=== PATIENT | male | born 1935 | race Caucasian/White ===

== ENCOUNTER → 2016-07-17 | Outpatient (CLI) | payer OTHER | END | disposition home or self-care (01) | LOC: PCVCCLINIC 09:50 | PROVIDERS: ATTEND Internal Medicine | DX: I48.91 Unspecified atrial fibrillation (principal); E11.9 Type 2 diabetes mellitus without complications; I10 Essential (primary) hypertension; E78.5 Hyperlipidemia, unspecified | CPT/HCPCS: 85610 ==

== ENCOUNTER → 2016-07-27 | Outpatient (CLI) | payer OTHER | END | disposition home or self-care (01) | LOC: PCVCCLINIC 14:45 | PROVIDERS: ATTEND Internal Medicine | DX: I48.0 Paroxysmal atrial fibrillation (principal); E78.5 Hyperlipidemia, unspecified; E11.9 Type 2 diabetes mellitus without complications; I10 Essential (primary) hypertension; Z79.01 Long term (current) use of anticoagulants | CPT/HCPCS: 80061; 93005; G0463 ==

== ENCOUNTER → 2016-08-14 | Outpatient (CLI) | payer OTHER | END | disposition home or self-care (01) | LOC: PCVCCLINIC 10:38 | PROVIDERS: ATTEND Internal Medicine | DX: I48.91 Unspecified atrial fibrillation (principal); E11.9 Type 2 diabetes mellitus without complications; I10 Essential (primary) hypertension | CPT/HCPCS: 85610 ==

== ENCOUNTER → 2016-09-11 | Outpatient (CLI) | payer OTHER | END | disposition home or self-care (01) | LOC: PCVCCLINIC 10:25 | PROVIDERS: ATTEND Internal Medicine | DX: I48.91 Unspecified atrial fibrillation (principal) | CPT/HCPCS: 85610; G0463 ==

== ENCOUNTER → 2016-09-26 | Outpatient (CLI) | payer OTHER | END | disposition home or self-care (01) | LOC: PCVCCLINIC 09:35 | PROVIDERS: ATTEND Internal Medicine | DX: I48.91 Unspecified atrial fibrillation (principal); E11.9 Type 2 diabetes mellitus without complications | CPT/HCPCS: 85610; G0463 ==

== ENCOUNTER → 2016-10-24 | Outpatient (CLI) | payer OTHER | END | disposition home or self-care (01) | LOC: PCVCCLINIC 09:28 | PROVIDERS: ATTEND Internal Medicine | DX: I48.0 Paroxysmal atrial fibrillation (principal) | CPT/HCPCS: 85610; G0463 ==

== ENCOUNTER → 2016-11-21 | Outpatient (CLI) | payer OTHER | END | disposition home or self-care (01) | LOC: PCVCCLINIC 09:38 | PROVIDERS: ATTEND Internal Medicine | DX: I48.91 Unspecified atrial fibrillation (principal); Z79.01 Long term (current) use of anticoagulants | CPT/HCPCS: 85610 ==

== ENCOUNTER → 2016-12-19 | Outpatient (CLI) | payer OTHER | END | disposition home or self-care (01) | LOC: PCVCCLINIC 10:47 | PROVIDERS: ATTEND Internal Medicine | DX: I48.91 Unspecified atrial fibrillation (principal); E11.9 Type 2 diabetes mellitus without complications; I10 Essential (primary) hypertension; E78.5 Hyperlipidemia, unspecified; Z79.01 Long term (current) use of anticoagulants | CPT/HCPCS: 85610 ==

== ENCOUNTER → 2016-12-24 | Outpatient (CLI) | payer OTHER | END | disposition home or self-care (01) | LOC: PCVCCLINIC 10:43 | PROVIDERS: ATTEND Internal Medicine | DX: I48.91 Unspecified atrial fibrillation (principal); Z79.01 Long term (current) use of anticoagulants | CPT/HCPCS: 85610 ==

== ENCOUNTER → 2017-01-07 | Outpatient (CLI) | payer OTHER | END | disposition home or self-care (01) | LOC: PCVCCLINIC 15:24 | PROVIDERS: ATTEND Internal Medicine | DX: I48.0 Paroxysmal atrial fibrillation (principal); E11.9 Type 2 diabetes mellitus without complications; E78.5 Hyperlipidemia, unspecified; I10 Essential (primary) hypertension; Z79.01 Long term (current) use of anticoagulants | CPT/HCPCS: 85610 ==

== ENCOUNTER → 2017-01-15 | Outpatient (CLI) | payer OTHER | END | disposition home or self-care (01) | LOC: PCVCCLINIC 11:20 | PROVIDERS: ATTEND Internal Medicine | DX: I48.0 Paroxysmal atrial fibrillation (principal); I10 Essential (primary) hypertension; E78.5 Hyperlipidemia, unspecified; E11.9 Type 2 diabetes mellitus without complications; Z79.01 Long term (current) use of anticoagulants; Z96.652 Presence of left artificial knee joint; Z79.84 Long term (current) use of oral hypoglycemic drugs; Z91.048 Other nonmedicinal substance allergy status | CPT/HCPCS: 80061; 93005; G0463 ==

== ENCOUNTER → 2017-02-07 | Outpatient (CLI) | payer OTHER | END | disposition home or self-care (01) | LOC: PCVCCLINIC 15:14 | PROVIDERS: ATTEND Internal Medicine | DX: Z51.81 Encounter for therapeutic drug level monitoring (principal); I48.0 Paroxysmal atrial fibrillation; E11.9 Type 2 diabetes mellitus without complications; E78.5 Hyperlipidemia, unspecified; I10 Essential (primary) hypertension; M48.06 Spinal stenosis, lumbar region; Z79.01 Long term (current) use of anticoagulants | CPT/HCPCS: 85610 ==

== ENCOUNTER → 2017-03-07 | Outpatient (CLI) | payer OTHER | END | disposition home or self-care (01) | LOC: PCVCCLINIC 10:07 | PROVIDERS: ATTEND Internal Medicine | DX: Z51.81 Encounter for therapeutic drug level monitoring (principal); I48.91 Unspecified atrial fibrillation; Z79.01 Long term (current) use of anticoagulants | CPT/HCPCS: 85610 ==

== ENCOUNTER → 2017-04-04 | Outpatient (CLI) | payer OTHER | END | disposition home or self-care (01) | LOC: PCVCCLINIC 10:07 | PROVIDERS: ATTEND Internal Medicine | DX: Z51.81 Encounter for therapeutic drug level monitoring (principal); I48.0 Paroxysmal atrial fibrillation; E11.9 Type 2 diabetes mellitus without complications; E78.5 Hyperlipidemia, unspecified; I10 Essential (primary) hypertension; Z79.01 Long term (current) use of anticoagulants | CPT/HCPCS: 85610 ==

== ENCOUNTER → 2017-04-11 | Outpatient (CLI) | payer OTHER | END | disposition home or self-care (01) | LOC: PCVCCLINIC 10:27 | PROVIDERS: ATTEND Internal Medicine | DX: Z51.81 Encounter for therapeutic drug level monitoring (principal); Z79.01 Long term (current) use of anticoagulants; E11.9 Type 2 diabetes mellitus without complications; E78.5 Hyperlipidemia, unspecified; I10 Essential (primary) hypertension; I48.0 Paroxysmal atrial fibrillation | CPT/HCPCS: 85610 ==

== ENCOUNTER → 2017-04-25 | Outpatient (CLI) | payer OTHER | END | disposition home or self-care (01) | LOC: PCVCCLINIC 11:16 | PROVIDERS: ATTEND Internal Medicine | DX: Z51.81 Encounter for therapeutic drug level monitoring (principal); I48.91 Unspecified atrial fibrillation; E11.9 Type 2 diabetes mellitus without complications; E78.5 Hyperlipidemia, unspecified; I10 Essential (primary) hypertension; Z79.01 Long term (current) use of anticoagulants | CPT/HCPCS: 85610 ==

== ENCOUNTER → 2017-06-26 | Outpatient (CLI) | payer OTHER | END | disposition home or self-care (01) | LOC: PCVCCLINIC 14:14 | PROVIDERS: ATTEND Internal Medicine | DX: Z51.81 Encounter for therapeutic drug level monitoring (principal); I48.0 Paroxysmal atrial fibrillation; E11.9 Type 2 diabetes mellitus without complications; E78.5 Hyperlipidemia, unspecified; I10 Essential (primary) hypertension; Z79.01 Long term (current) use of anticoagulants | CPT/HCPCS: 85610 ==

== ENCOUNTER → 2017-07-17 | Outpatient (CLI) | payer OTHER ==
[~2017-07-17] MED LIST: REGADENOSON 0.4 MG/5 ML DISP.SYRIN. IV
== END | disposition home or self-care (01) ==
LOC: PCVCIMAG 08:06
DX: I48.0 Paroxysmal atrial fibrillation (principal); I10 Essential (primary) hypertension; E78.5 Hyperlipidemia, unspecified; E11.9 Type 2 diabetes mellitus without complications; R94.31 Abnormal electrocardiogram [ECG] [EKG]; Z79.01 Long term (current) use of anticoagulants; Z79.899 Other long term (current) drug therapy
CPT/HCPCS: 78452; 80061; 85610; 93005; 93017; A9500; G0463; J2785

== ENCOUNTER → 2017-07-19 | Outpatient (CLI) | payer OTHER | END | disposition home or self-care (01) | LOC: PCVCIMAG 08:10 | DX: I08.3 Combined rheumatic disorders of mitral, aortic and tricuspid valves (principal); I10 Essential (primary) hypertension; I48.0 Paroxysmal atrial fibrillation; E11.9 Type 2 diabetes mellitus without complications | CPT/HCPCS: 93306 ==

== ENCOUNTER → 2017-07-26 | Outpatient (CLI) | payer OTHER ==
[~2017-07-26] MED LIST changes: +IV NORMAL SALINE 1000ML BAG 1,000 ML; +MIDAZOLAM HCL/PF 2 MG/2 ML VIAL.; -REGADENOSON 0.4 MG/5 ML DISP.SYRIN. IV; +fentaNYL PF VIAL 100 MCG/2 ML VIAL
== END | disposition home or self-care (01) ==
LOC: PCVCINTER 08:25
DX: I48.91 Unspecified atrial fibrillation (principal)
CPT/HCPCS: 92960; J2250; J3010; J7030

== ENCOUNTER → 2017-08-02 | Outpatient (CLI) | payer OTHER | END | disposition home or self-care (01) | LOC: PCVCCLINIC 11:09 | DX: Z51.81 Encounter for therapeutic drug level monitoring (principal); I48.0 Paroxysmal atrial fibrillation; E11.9 Type 2 diabetes mellitus without complications; E78.5 Hyperlipidemia, unspecified; I10 Essential (primary) hypertension; M48.061 Spinal stenosis, lumbar region without neurogenic claudication; Z79.01 Long term (current) use of anticoagulants | CPT/HCPCS: 85610 ==

== ENCOUNTER → 2017-08-16 | Outpatient (CLI) | payer OTHER | END | disposition home or self-care (01) | LOC: PCVCCLINIC 11:24 | DX: Z51.81 Encounter for therapeutic drug level monitoring (principal); I48.0 Paroxysmal atrial fibrillation; E11.9 Type 2 diabetes mellitus without complications; I10 Essential (primary) hypertension; E78.5 Hyperlipidemia, unspecified; M48.061 Spinal stenosis, lumbar region without neurogenic claudication; Z79.01 Long term (current) use of anticoagulants | CPT/HCPCS: 85610 ==

== ENCOUNTER → 2017-08-30 | Outpatient (CLI) | payer OTHER | END | disposition home or self-care (01) | LOC: PCVCCLINIC 11:21 | DX: Z51.81 Encounter for therapeutic drug level monitoring (principal); I48.91 Unspecified atrial fibrillation; E11.9 Type 2 diabetes mellitus without complications; E78.5 Hyperlipidemia, unspecified; I10 Essential (primary) hypertension; Z79.01 Long term (current) use of anticoagulants | CPT/HCPCS: 85610 ==

== ENCOUNTER → 2017-09-26 | Outpatient (CLI) | payer OTHER | END | disposition home or self-care (01) | LOC: PCVCCLINIC 13:00 | DX: I48.0 Paroxysmal atrial fibrillation (principal); I10 Essential (primary) hypertension; E78.5 Hyperlipidemia, unspecified; E11.9 Type 2 diabetes mellitus without complications; Z79.01 Long term (current) use of anticoagulants; Z79.899 Other long term (current) drug therapy; Z79.84 Long term (current) use of oral hypoglycemic drugs | CPT/HCPCS: 93005; G0463 ==

== ENCOUNTER → 2017-10-25 | Outpatient (CLI) | payer OTHER | END | disposition home or self-care (01) | LOC: PCVCCLINIC 14:57 | DX: Z51.81 Encounter for therapeutic drug level monitoring (principal); I48.0 Paroxysmal atrial fibrillation; E11.9 Type 2 diabetes mellitus without complications; E78.00 Pure hypercholesterolemia, unspecified; E78.5 Hyperlipidemia, unspecified; I10 Essential (primary) hypertension; Z79.01 Long term (current) use of anticoagulants | CPT/HCPCS: 85610 ==

== ENCOUNTER → 2017-11-08 | Outpatient (CLI) | payer OTHER | END | disposition home or self-care (01) | LOC: PCVCCLINIC 11:04 | DX: Z51.81 Encounter for therapeutic drug level monitoring (principal); I48.91 Unspecified atrial fibrillation; E11.9 Type 2 diabetes mellitus without complications; I10 Essential (primary) hypertension; E78.5 Hyperlipidemia, unspecified; I48.0 Paroxysmal atrial fibrillation; Z79.01 Long term (current) use of anticoagulants | CPT/HCPCS: 85610 ==

== ENCOUNTER → 2017-11-11 | Outpatient (CLI) | payer OTHER | END | disposition home or self-care (01) | LOC: PCVCCLINIC 15:07 | DX: Z51.81 Encounter for therapeutic drug level monitoring (principal); I48.0 Paroxysmal atrial fibrillation; E11.9 Type 2 diabetes mellitus without complications; E78.5 Hyperlipidemia, unspecified; I10 Essential (primary) hypertension; Z79.01 Long term (current) use of anticoagulants | CPT/HCPCS: 85610 ==

== ENCOUNTER → 2018-01-14 | Outpatient (CLI) | payer OTHER | END | disposition home or self-care (01) | LOC: PCVCCLINIC 10:40 | DX: I48.0 Paroxysmal atrial fibrillation (principal); I10 Essential (primary) hypertension; E78.5 Hyperlipidemia, unspecified; E11.9 Type 2 diabetes mellitus without complications; Z79.01 Long term (current) use of anticoagulants; Z79.899 Other long term (current) drug therapy | CPT/HCPCS: 80061; 93005; G0463 ==

== ENCOUNTER → 2019-04-09 | Outpatient (CLI) | payer OTHER ==
--- NOTE | 2019-04-09 12:18 | PCVCIMAG ---
APPROVED REPORT Study performed: 04/09/2019 09:58:23 EXAM: Comprehensive 2D, Doppler, and color-flow Echocardiogram Patient Location: Echo lab Room #: 2Status: routine BSA: 2.42 HR: 52 bpmBP: 128/82 mmHg Rhythm: Bradycardia Other Information Study Quality: Good Risk Factors: Cardiac Risk Factors: HTN, Hyperlipidemia, DM Indications Atrial Fibrillation Hx near syncope,falls 2D Dimensions IVSd: 16.06 (7-11mm)LVOT Diam: 23.72 (18-24mm) LVDd: 54.53 mm PWd: 13.71 (7-11mm)Ascending Ao: 37.73 (22-36mm) LVDs: 35.56 (25-40mm) Left Atrium: 49.77 (27-40mm) Aortic Root: 32.99 mm LV Single Plane 4CH: 44.31 % LV Single Plane 2CH: 55.23 % Biplane EF: 51.4 % Volumes Left Atrial Volume (Systole) Single Plane 4CH: 120.97 mLSingle Plane 2CH: 126.02 mL Biplane LA Volume: 126.00 mLLA ESV Index: 52.00 mL/m2 Aortic Valve AoV Peak Ace.: 1.56 m/s AO Peak Gr.: 9.79 mmHgLVOT Max P.29 mmHg LVOT Mean P.58 mmHg LVOT Max V: 0.95 m/s LVOT Mean V: 0.58 m/s LVOT V1 VTI: 16.90 cm CASSIA Vmax: 2.82 cm2 SV (LVOT): 74.64 mL Mitral Valve E/A Ratio: 4.5 MV Decel. Time: 219.35 ms MV E Max Ace.: 1.07 m/s MV A Ace.: 0.24 m/s IVRT: 76.12 ms TDI E/Lateral E': 13.38E/Medial E': 26.75 Medial E' Ace.: 0.04 m/s Lateral E' Ace.: 0.08 m/s Pulmonary Valve PV Peak Ace.: 1.01 m/sPV Peak Gr.: 4.06 mmHg Tricuspid Valve TR Peak Ace.: 3.21 m/s TR Peak Gr.: 41.17 mmHg TV Vmax: 0.62 m/sPA Pressure: 56.00 mmHg Left Ventricle The left ventricle is normal size. There is normal LV segmental wall motion. Moderate concentric left ventricular hypertrophy. The left ventricular systolic function is normal. The left ventricular ejection fraction is within the normal range. LVEF 55%. The diastolic function is abnormal. Right Ventricle The right ventricle is normal size. The right ventricular systolic function is normal. Atria Left atrium is severely dilated. Right atrium is moderately dilated. Aortic Valve Aortic valve is trileaflet, mildly sclerotic. No aortic regurgitation is present. There is no aortic valvular stenosis. Mitral Valve The mitral valve is normal in structure. Mild mitral regurgitation No evidence of mitral valve stenosis. Tricuspid Valve The tricuspid valve is normal in structure. Moderate tricuspid regurgitation with a PA pressure of 55. Moderate pulmonary hypertension. Pulmonic Valve The pulmonary valve is normal in structure. Mild to moderate pulmonic regurgitation. Great Vessels The aortic root is normal in size. The ascending aorta is normal in size. Aortic arch is normal in caliber. IVC is normal in size and collapses >50% with inspiration. Pericardium There is no pericardial effusion. There is no pleural effusion. <Conclusion> The left ventricular systolic function is normal. There is normal LV segmental wall motion. LVEF 55%. Both atria are severely dilated. Aortic valve is trileaflet, mildly sclerotic. No aortic regurgitation or stenosis The mitral valve is normal in structure. Mild mitral regurgitation Moderate tricuspid regurgitation with a pulmonary artery pressure of 55. There is no pericardial effusion.
== END | disposition home or self-care (01) ==
LOC: PCVCIMAG 09:49
PROVIDERS: ATTEND Internal Medicine
DX: I08.1 Rheumatic disorders of both mitral and tricuspid valves (principal); E11.9 Type 2 diabetes mellitus without complications; I48.0 Paroxysmal atrial fibrillation; E78.5 Hyperlipidemia, unspecified; I10 Essential (primary) hypertension; R55 Syncope and collapse
CPT/HCPCS: 93306